=== PATIENT | female | born 1940 | race Caucasian/White ===

== ENCOUNTER → 2023-08-09 14:46 | Outpatient (REF) | payer MEDICARE, BC, SELFPAY | LOC: DHCBC MAIN 14:46 | PROVIDERS: ATTENDING PHYSICIAN Internal Medicine Cardiovascular Disease; FAMILY PHYSICIAN Nurse Practitioner Adult Health | DX: I10 Essential (primary) hypertension (principal); I27.20 Pulmonary hypertension, unspecified | CPT/HCPCS: 93306 ==

== ENCOUNTER 2023-09-06 09:25 | Outpatient (RCR) | payer MEDICARE, BC, SELFPAY | END 2023-09-06 23:59 | disposition home or self-care (01) | LOC: RPT 09:25 | PROVIDERS: ATTENDING PHYSICIAN Nurse Practitioner Adult Health | DX: I89.0 Lymphedema, not elsewhere classified (principal); Z73.6 Limitation of activities due to disability | CPT/HCPCS: 97163; 97530; 97535 ==

== ENCOUNTER 2023-10-05 10:33 | Outpatient (RCR) | payer MEDICARE, BC, SELFPAY | END 2023-10-05 23:59 | disposition home or self-care (01) | LOC: RPT 10:33 | PROVIDERS: ATTENDING PHYSICIAN Nurse Practitioner Adult Health | DX: I89.0 Lymphedema, not elsewhere classified (principal); Z73.6 Limitation of activities due to disability | CPT/HCPCS: 97530; 97535; 97760 ==

== ENCOUNTER → 2023-12-07 13:07 | Outpatient (REF) | payer MEDICARE, BC, SELFPAY | LOC: RAD 13:07 | PROVIDERS: ATTENDING PHYSICIAN Specialist; FAMILY PHYSICIAN Nurse Practitioner Adult Health | DX: C64.2 Malignant neoplasm of left kidney, except renal pelvis (principal) | CPT/HCPCS: 76775 ==

== ENCOUNTER 2023-12-07 13:53 | Outpatient (RCR) | payer MEDICARE, BC, SELFPAY | END 2023-12-07 23:59 | disposition home or self-care (01) | LOC: RPT 13:53 | PROVIDERS: ATTENDING PHYSICIAN Nurse Practitioner Adult Health | DX: I89.0 Lymphedema, not elsewhere classified (principal); Z73.6 Limitation of activities due to disability | CPT/HCPCS: 97140; 97535; 97763 ==

== ENCOUNTER 2024-01-31 13:59 | Outpatient (RCR) | payer MEDICARE, BC, SELFPAY | END 2024-01-31 23:59 | disposition home or self-care (01) | LOC: RPT 13:59 | PROVIDERS: ATTENDING PHYSICIAN Nurse Practitioner Adult Health | DX: I89.0 Lymphedema, not elsewhere classified (principal); Z73.6 Limitation of activities due to disability | CPT/HCPCS: 97140; 97530; 97535 ==

== ENCOUNTER 2024-04-10 13:57 | Outpatient (RCR) | payer MEDICARE, BC, SELFPAY | END 2024-04-10 23:59 | disposition home or self-care (01) | LOC: RPT 13:57 | PROVIDERS: ATTENDING PHYSICIAN Nurse Practitioner Adult Health | DX: I89.0 Lymphedema, not elsewhere classified (principal); Z73.6 Limitation of activities due to disability | CPT/HCPCS: 97140; 97530; 97535; 97550; 97763 ==

== ENCOUNTER → 2024-04-16 10:10 | Outpatient (REF) | payer MEDICARE, SELFPAY ==
--- NOTE | 2024-04-17 14:04 | OID.BR.INTR ---
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
- -
Did not meet patient at time of biopsy. Will follow up per protocol.
== END ==
LOC: WDC 10:10
PROVIDERS: ATTENDING PHYSICIAN Nurse Practitioner Adult Health
DX: N63.22 Unspecified lump in the left breast, upper inner quadrant (principal)
CPT/HCPCS: 88305; 19083; 76642; 77062; 77066; 88342; 88360; A4648

== ENCOUNTER 2024-07-04 14:02 | Outpatient (RCR) | payer MEDICARE, BC, SELFPAY | END 2024-07-04 23:59 | disposition home or self-care (01) | LOC: RPT 14:02 | PROVIDERS: ATTENDING PHYSICIAN Nurse Practitioner Adult Health | DX: I89.0 Lymphedema, not elsewhere classified (principal); Z73.6 Limitation of activities due to disability; C50.919 Malignant neoplasm of unspecified site of unspecified female breast | CPT/HCPCS: 97140; 97530; 97763 ==

== ENCOUNTER 2024-09-05 13:41 | Outpatient (RCR) | payer MEDICARE, BC, SELFPAY | END 2024-09-05 23:59 | disposition home or self-care (01) | LOC: RPT 13:41 | PROVIDERS: ATTENDING PHYSICIAN Nurse Practitioner Adult Health | DX: I89.0 Lymphedema, not elsewhere classified (principal); Z73.6 Limitation of activities due to disability | CPT/HCPCS: 97116; 97140; 97530; 97535 ==

== ENCOUNTER 2025-01-21 13:55 | Outpatient (RCR) | payer MEDICARE, BC, SELFPAY | END 2025-01-21 23:59 | disposition home or self-care (01) | LOC: RPT 13:55 | PROVIDERS: ATTENDING PHYSICIAN Nurse Practitioner Adult Health | DX: I89.0 Lymphedema, not elsewhere classified (principal); Z73.6 Limitation of activities due to disability | CPT/HCPCS: 97116; 97140; 97530; 97535 ==